=== PATIENT | male | born 1985 ===

== ENCOUNTER 2016-11-26 21:03 | Emergency (ER) | payer BC, OTHER ==
[2016-11-26 21:11] VITALS: PULSE 78; RESP 20; TEMP 98.6; O2SAT 100
[2016-11-26 21:12] VITALS: BP 131/64
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
== END 2016-11-26 21:40 | disposition home or self-care (01) ==
LOC: H.ER 21:03
DX: H93.12 Tinnitus, left ear (principal)

== ENCOUNTER 2017-06-26 07:26 | Emergency (ER) | payer OTHER ==
[2017-06-26 07:34] VITALS: BP 137/87; PULSE 96; RESP 18; TEMP 98; O2SAT 100
[2017-06-26 08:42] LABS: ABG ALLEN TEST YES; ARTERIAL BLOOD GAS HCO3 24.6 mmol/L (21-28); ARTERIAL BLOOD GAS HEMOGLOBIN 13.7 g/dL (11.7-17.4); ARTERIAL BLOOD GAS O2 CAPACITY 18.5 mL/dL (16-24); ARTERIAL BLOOD GAS O2 CONTENT 18.4 ML/dL (15-23); ARTERIAL BLOOD GAS O2 SAT 99.2 % (95-98); ARTERIAL BLOOD GAS PCO2 38 mm/Hg (35-45); ARTERIAL BLOOD GAS PH 7.41 (7.35-7.45); ARTERIAL BLOOD GAS PO2 90 mm/Hg (80-100); ARTERIAL BLOOD GAS TCO2 25.3 mmol/L (22-28)
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
== END 2017-06-26 09:48 | disposition home or self-care (01) ==
LOC: H.ER 07:26
DX: Z77.098 Contact with and (suspected) exposure to other hazardous, chiefly nonmedicinal, chemicals (principal); J70.5 Respiratory conditions due to smoke inhalation

== ENCOUNTER 2018-09-29 21:00 | Emergency (ER) | payer OTHER ==
[2018-09-29 21:11] VITALS: BP 107/62; PULSE 83; RESP 16; TEMP 98.1; O2SAT 98
[2018-09-29] MEDS ORDERED: Oxycodone/Acetaminophen 5/325 mg Tab PO STA (21:51)
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
[2018-09-29] MEDS ORDERED: Lidocaine 5% Patch TD STA (23:32)
[2018-09-29] MEDS ORDERED: Lidocaine 5% Patch TD ONE (23:49)
--- NOTE | 2018-09-30 09:32 | RAD ---
Date of service: 09/29/2018 HISTORY: pain COMPARISON: No prior. TECHNIQUE: 2 views obtained. FINDINGS: BONES: No malalignment is seen. No compression fracture is noted. There is evidence of multilevel degenerative disc disease, greatest in the lower thoracic spine region. Pedicles are intact. No paraspinal masses are seen. Visualized lungs are unremarkable. Posterior ribs are intact. DISC SPACES: See above SOFT TISSUES: Normal. OTHER FINDINGS: None. IMPRESSION: No evidence of fracture or malalignment. Degenerative disc disease.
== END 2018-09-29 23:55 | disposition home or self-care (01) ==
LOC: H.ER 21:00
DX: M62.830 Muscle spasm of back (principal)